=== PATIENT | female | born 1960 | race African-American/Black ===

== ENCOUNTER 2019-11-27 21:36 | Emergency (ER) | payer OTHER ==
[~2019-11-27] VITALS: Ht 165.1 cm; Wt 74.4 kg
[2019-11-27] MEDS ORDERED: SODIUM CHLORIDE 0.9% 1,000 ML IV ONE (22:30)
[2019-11-27] MEDS ORDERED: KETOROLAC TROMETHAMINE 30 MG/ML VIAL IVP ONE (22:30)
[2019-11-27] MEDS ORDERED: FAMOTIDINE 10 MG/ML 2 ML VIAL IVP ONE (22:30)
[2019-11-27] MEDS ORDERED: ONDANSETRON HCL 4 MG/2 ML VIAL IVP ONE (22:30)
[2019-11-27] MEDS ORDERED: MAG HYDROX/AL HYDROX/SIMETH 30 ML SUSP UDCUP PO ONE (22:30)
[2019-11-27 22:49] LABS: BASOPHILS % (AUTO) 0.8 % (0.0-2.0); EOSINOPHILS % (AUTO) 1.3 % (1.0-6.0); HEMATOCRIT 44.1 % (36-46); HEMOGLOBIN 14.5 g/dL (12.0-16.0); LYMPHOCYTES # (AUTO) 2.6 K/uL (1.0-4.8); LYMPHOCYTES % (AUTO) 39.8 % (22.0-44.0); MEAN CORPUSCULAR HEMOGLOBIN 32.9 pg (26.0-34.0); MEAN CORPUSCULAR HGB CONC 32.9 G/dL (31.0-37.0); MEAN CORPUSCULAR VOLUME 100 fL (80-100); MONOCYTES # (AUTO) 0.6 K/uL (0.1-1.0); MONOCYTES % (AUTO) 8.7 % (2.0-9.0); NEUTROPHILS # (AUTO) 3.2 K/uL (1.8-7.7); NEUTROPHILS % (AUTO) 49.4 % (40.0-70.0); PLATELET COUNT (AUTO) 266 K/uL (150-450); RED BLOOD CELL COUNT(AUTO) 4.42 MIL/uL (4.00-5.20); RED CELL DISTRIBUTION WIDTH 13.3 % (11.5-14.5)
[2019-11-27 22:58] LABS: ANION GAP 6 mmol/L (8-16); CALCIUM, TOTAL 9.9 mg/dL (8.8-10.5); CARBON DIOXIDE 29 mmol/L (22-29); CHLORIDE 104 mmol/L (98-107); CREATININE 1.08 mg/dL (0.60-1.30); GLOMERULAR FILTR. RATE CALC > 60 mL/min (>60); GLUCOSE,RANDOM 68 mg/dL (70-110); POTASSIUM 3.9 mmol/L (3.5-5.1); SODIUM SERUM 139 mmol/L (136-145); UREA NITROGEN, BLOOD 15 mg/dL (7-18)
[2019-11-27 23:19] LABS: COVID AG,FIA SOURCE NASOPHARYNGEAL
[2019-11-27 23:23] LABS: ALANINE AMINOTRANSFERASE 30 U/L (12-78); ALBUMIN 3.8 g/dL (3.4-5.0); ALKALINE PHOSPHATASE 67 U/L (46-116); ASPARTATE AMINOTRANSFERASE 30 U/L (15-37); BILIRUBIN,TOTAL 0.8 mg/dL (0.1-1.0); CREATINE KINASE, TOTAL ONLY 868 U/L (26-192); HCG,QUANTITATIVE 1 mIU/mL (0-6); LIPASE 237 U/L (73-393); TOTAL PROTEIN, SERUM 7.4 g/dL (6.4-8.2)
[2019-11-27 23:28] LABS: B-TYPE NATRIURETIC PEPTIDE 14 pg/mL (0-100)
[2019-11-27] MEDS ORDERED: IOVERSOL 350 MG/ML 100 ML VIAL ONE (23:41)
[2019-11-27] MEDS ORDERED: SODIUM CHLORIDE 0.9% 100 ML ONE (23:41)
[2019-11-27 23:55] LABS: APPEARANCE,URINE CLEAR (CLEAR); BILIRUBIN,URINE NEGATIVE (NEGATIVE); GLUCOSE, URINE (UA) NEGATIVE (NEGATIVE); KETONES,URINE NEGATIVE (NEGATIVE); LEUKOCYTE ESTERASE ,URINE TRACE (NEGATIVE); NITRATE,URINE NEGATIVE (NEGATIVE); OCCULT BLOOD,URINE NEGATIVE (NEGATIVE); PROTEIN,URINE NEGATIVE (NEGATIVE); UROBILINOGEN,URINE 0.2 mg/dL (<=1.0)
[2019-11-28 00:30] LABS: BACTERIA,URINE Few /HPF (None Seen); RBC,URINE 0-2 /HPF (0-2); SQUAMOUS EPITHELIAL CELL,UR Few /LPF (None Seen)
[2019-11-28 00:45] VITALS: BP 172/110
== END 2019-11-28 01:20 | disposition home or self-care (01) ==
LOC: EMS 21:36
DX: R51.9 Headache, unspecified (principal); R10.33 Periumbilical pain; F15.90 Other stimulant use, unspecified, uncomplicated; R19.7 Diarrhea, unspecified; F12.90 Cannabis use, unspecified, uncomplicated; Z20.828 Contact with and (suspected) exposure to other viral communicable diseases
CPT/HCPCS: 36415; 70450; 71045; 74177; 80053; 81001; 82550; 83690; 83880; 84484; 84702; 85025; 87426; 93005; 96361; 96374; 96375; 99285; J1885; J2405; J3490; J7050; Q9967